=== PATIENT | female | born 1960 | race African-American/Black ===

== ENCOUNTER 2017-03-17 16:09 | Observation (INO) | payer BC ==
[~2017-03-17] VITALS: Ht 175.3 cm; Wt 90.7 kg
[2017-03-17] MEDS ORDERED: ASPIRIN 325MG EC TABLET PO ONE (19:00)
[2017-03-17] MEDS ORDERED: FAMOTIDINE 20MG/2ML VIAL IV ONE (19:00)
[2017-03-17 19:03] LABS: BASOPHILS % 1.2 % (0.0-2.0); EOSINOPHILS % 0.8 % (0.0-5.0); HEMATOCRIT. 45.9 % (36.0-48.0); HEMOGLOBIN. 15.5 g/dL (12.0-16.0); LYMPHOCYTES % 32.5 % (20.0-50.0); MEAN CORPUSCULAR HEMOGLOBIN 30.1 pg (28.0-32.0); MEAN CORPUSCULAR HGB CONC 33.7 g/dL (31.0-37.0); MEAN CORPUSCULAR VOLUME 89.1 fL (81.0-99.0); MEAN PLATELET VOLUME 9.3 fl (7.4-10.4); MONOCYTES % 4.7 % (2.0-8.0); NEUTROPHILS % 60.8 % (40.0-76.0); PLATELET 221 x1000/uL (130-400); RED BLOOD CELL COUNT 5.15 mill/uL (4.2-5.4); RED CELL DISTRIBUTION WIDTH 13.3 % (11.6-14.6); WHITE BLOOD COUNT 7.8 x1000/uL (4.5-11.0)
[2017-03-17 19:12] LABS: D-DIMER 0.75 mg/L FEU (<0.50); PROTHROMBIN TIME 10.8 sec
[2017-03-17 19:18] LABS: ALANINE AMINOTRANSFERASE 15 IU/L (13-61); ALBUMIN 3.8 g/dL (3.4-5.0); ANION GAP 12; CALCIUM 9.3 mg/dL (8.5-10.1); CARBON DIOXIDE 29 mEq/L (21-32); CHLORIDE 104 mEq/L (98-107); INDEX HEMOLYSI 1 (1-3); INDEX ICTERIC 1 (1-4); INDEX LIPEMIC 1 (1-3); LIPASE 67 IU/L (73-393); NT PRO B-TYPE NATRIURETIC PEP 156 pg/mL (5-125); TROPONIN I < 0.02 ng/mL (0.00-0.04); UREA NITROGEN BLOOD 8 mg/dL (7-21); eGFR > 60 mL/min (>60)
[2017-03-17 19:24] LABS: THYROID STIMULATING HORMONE 0.69 uIU/mL (0.36-3.74)
[2017-03-17 20:48] LABS: CLARITY URINE CLEAR (CLEAR); COLOR URINE YELLOW (YELLOW); GLUCOSE URINE NEGATIVE (NEGATIVE); KETONES URINE TRACE (NEGATIVE); LEUKOCYTE ESTERASE URINE NEGATIVE (NEGATIVE); NITRITE URINE NEGATIVE (NEGATIVE); OCCULT BLOOD URINE TRACE (NEGATIVE); PROTEIN URINE NEGATIVE (NEGATIVE); SPECIFIC GRAVITY URINE 1.008 (1.005-1.030); UROBILINOGEN URINE 0.2 E.U./dL (0.2-1.0)
[2017-03-17] MEDS ORDERED: MORPHINE SULFATE 2 MG/ML CPJ (NOT FOR IM USE) IV ONE (21:00)
[2017-03-17 21:01] LABS: *AMPHETAMINES SCREEN URINE NEGATIVE (NEGATIVE); *BARBITURATES SCREEN URINE NEGATIVE (NEGATIVE); *BENZODIAZEPINES SCREEN URINE NEGATIVE (NEGATIVE); *COCAINE SCREEN URINE NEGATIVE (NEGATIVE); CANNABINOID URINE SCREEN NEGATIVE (NEGATIVE); ECSTASY MDMA SCREEN URINE NEGATIVE (NEGATIVE); METHADONE URINE SCREEN NEGATIVE (NEGATIVE); OPIATES URINE SCREEN NEGATIVE (NEGATIVE); PHENCYCLIDINE URINE SCREEN NEGATIVE (NEGATIVE)
[2017-03-17 22:19] LABS: SQUAMOUS EPITHELIAL CELL URINE FEW /lpf (RARE/1+); WBC URINE 0-2 /hpf (0-2)
[2017-03-17 22:20] LABS: BACTERIA URINE TRACE
[2017-03-17 23:00] VITALS: BP 150/74
[2017-03-18] VITALS: BP 146/95
[2017-03-18] MEDS ORDERED: METF-516 PO (01:38)
[2017-03-18] MEDS ORDERED: SIMV40TA5 PO (01:41)
[2017-03-18] MEDS ORDERED: OMEP20TA80 PO (01:41)
[2017-03-18] MEDS ORDERED: LORA10TA7 PO ×2 (01:42→01:44)
[2017-03-18] MEDS ORDERED: LORATADINE 10MG TABLET PO PRN (01:45)
[2017-03-18 04:00] VITALS: BP 138/84
[2017-03-18] MEDS ORDERED: CLONIDINE 0.1MG TABLET PO PRN (04:45)
[2017-03-18] MEDS ORDERED: ACETAMINOPHEN 325MG TABLET PO PRN (04:45)
[2017-03-18] MEDS ORDERED: DEXTROSE 50% WATER 50ML SYRINGE IV PRN ×2 (04:45)
[2017-03-18] MEDS: BLOOD SUGAR DIAGNOSTIC STRIP TEST SCH ×4 (07:19→21:00)
[2017-03-18] MEDS: INSULIN LISPRO 100 UNITS/ML SUBCUT SCH ×4 (07:20→21:00)
[2017-03-18 08:00] VITALS: BP 153/83
[2017-03-18 08:05] LABS: EOSINOPHILS % 1.9 % (0.0-5.0); HEMATOCRIT. 43.3 % (36.0-48.0); HEMOGLOBIN. 14.9 g/dL (12.0-16.0); LYMPHOCYTES % 32.5 % (20.0-50.0); MEAN CORPUSCULAR HEMOGLOBIN 30.7 pg (28.0-32.0); MEAN CORPUSCULAR HGB CONC 34.4 g/dL (31.0-37.0); MEAN CORPUSCULAR VOLUME 89.2 fL (81.0-99.0); MEAN PLATELET VOLUME 9.6 fl (7.4-10.4); MONOCYTES % 7.1 % (2.0-8.0); NEUTROPHILS % 57.5 % (40.0-76.0); PLATELET 201 x1000/uL (130-400); RED BLOOD CELL COUNT 4.85 mill/uL (4.2-5.4); RED CELL DISTRIBUTION WIDTH 13.5 % (11.6-14.6)
[2017-03-18 08:30] LABS: INDEX HEMOLYSI 1 (1-3); INDEX ICTERIC 1 (1-4); INDEX LIPEMIC 1 (1-3)
[2017-03-18 08:41] LABS: CREATINE KINASE 102 IU/L (26-192); CREATINE KINASE MB FRACTION < 0.5 ng/mL (0.5-3.6); HDL CHOLESTEROL 44 mg/dL (40-59); LDL CHOLESTEROL 96 mg/dL (5-100); THYROID STIMULATING HORMONE 0.76 uIU/mL (0.36-3.74); TRIGLYCERIDE 79 mg/dL (0-150); TROPONIN I < 0.02 ng/mL (0.00-0.04)
[2017-03-18] MEDS: OMEPRAZOLE 20MG CAPSULE EXTENDED RELEASE PO SCH (08:54)
[2017-03-18] MEDS: METFORMIN HCL 500MG TABLET PO SCH ×2 (08:54→18:11)
[2017-03-18] MEDS: ASPIRIN 81MG TABLET PO SCH (08:55)
[2017-03-18] MEDS: AMLODIPINE 5MG TABLET PO SCH (08:59)
[2017-03-18 12:00] VITALS: BP 140/86
[2017-03-18 16:00] VITALS: BP 139/85
[2017-03-18 16:25] LABS: CREATINE KINASE 93 IU/L (26-192); INDEX HEMOLYSI 1 (1-3); TROPONIN I < 0.02 ng/mL (0.00-0.04)
[2017-03-18] MEDS ORDERED: LEVO50TA8 PO (16:53)
[2017-03-18 20:00] VITALS: BP 136/80
[2017-03-18] MEDS ORDERED: ATORVASTATIN CALCIUM 20MG TABLET PO SCH (21:00)
[2017-03-19 00:20] VITALS: BP 132/84
[2017-03-19] MEDS ORDERED: FUROSEMIDE 40MG/4ML VIAL IVP ONE (02:00)
[2017-03-19 04:20] VITALS: BP 130/72
[2017-03-19] MEDS ORDERED: FUROSEMIDE 40MG/4ML VIAL IVP NR (05:15)
[2017-03-19 05:39] VITALS: BP 132/78
[2017-03-19] MEDS: BLOOD SUGAR DIAGNOSTIC STRIP TEST SCH (07:10)
[2017-03-19] MEDS ORDERED: LEVOTHYROXINE SODIUM 50MCG TABLET PO SCH (07:40)
[2017-03-19 08:00] VITALS: BP 137/65
[2017-03-19] MEDS: INSULIN LISPRO 100 UNITS/ML SUBCUT SCH (08:10)
[2017-03-19] MEDS: OMEPRAZOLE 20MG CAPSULE EXTENDED RELEASE PO SCH (08:16)
[2017-03-19] MEDS: ASPIRIN 81MG TABLET PO SCH (08:16)
[2017-03-19] MEDS: METFORMIN HCL 500MG TABLET PO SCH (08:16)
[2017-03-19] MEDS: AMLODIPINE 5MG TABLET PO SCH (08:18)
== END 2017-03-19 10:20 | disposition home or self-care (01) ==
LOC: ER 22:58 → 7WST 03-18 00:01 → INTOOBSV 03-18 00:01
PROVIDERS: ADMIT Internal Medicine; ATTEND Internal Medicine
DX: R07.2 Precordial pain (principal); E11.9 Type 2 diabetes mellitus without complications; I11.9 Hypertensive heart disease without heart failure; E78.5 Hyperlipidemia, unspecified; E03.9 Hypothyroidism, unspecified; E66.9 Obesity, unspecified; I25.10 Atherosclerotic heart disease of native coronary artery without angina pectoris; Z82.49 Family history of ischemic heart disease and other diseases of the circulatory system; Z87.891 Personal history of nicotine dependence
CPT/HCPCS: 36415; 71010; 80053; 80061; 80305; 81001; 82550; 82553; 82962; 83690; 83880; 84443; 84484; 85025; 85379; 85610; 85730; 93005; 96374; 96375; 96376; 99285; G0378; J1940; J2270; J3490

== ENCOUNTER 2017-07-14 08:53 | Emergency (ER) | payer BC ==
[~2017-07-14] VITALS: Ht 175.3 cm; Wt 94.0 kg
[~2017-07-14 08:53] MED LIST: LEVO50TA8 PO; LORA10TA7 PO; METF-516 PO; OMEP20TA80 PO; SIMV40TA5 PO
[2017-07-14] MEDS ORDERED: TETANUS, DIPHTHERIA, PERTUSSIS VAC/PF 0.5ML (>7YR OLD) IM ONE (11:15)
[2017-07-14 13:07] VITALS: BP 152/92
== END 2017-07-14 13:09 | disposition home or self-care (01) ==
LOC: ER 08:53
DX: T24.122A Burn of first degree of left knee, initial encounter (principal); F12.10 Cannabis abuse, uncomplicated; E03.9 Hypothyroidism, unspecified; I10 Essential (primary) hypertension; E11.9 Type 2 diabetes mellitus without complications; E78.00 Pure hypercholesterolemia, unspecified; W93.01XA Contact with dry ice, initial encounter; Y93.89 Activity, other specified; Y92.89 Other specified places as the place of occurrence of the external cause; Y99.8 Other external cause status
CPT/HCPCS: 90471; 90715; 99283